=== PATIENT | female | born 1980 | race Asian ===

== ENCOUNTER 2017-01-23 12:32 | Outpatient (CLI) | payer OTHER ==
--- NOTE | 2017-01-23 19:48 | ULT ---
OB ULTRASOUND: Date: 01-23-17 History: Positive . Evaluate for growth. Comparison: 10-11-16 FINDINGS: There is a single intrauterine gestation which is in cephalic presentation. Cardiac doppler demonstr ates heart tones with a heart rate of 147 bpm. The placenta is located posteriorly and t o the left. There is no evidence of placenta previa. There is a normal amount of amniotic fluid with an amniotic fluid index of 15.9 cm. measurements: BPD 8.25 cm 33 weeks 1 day HC 30.48 cm 33 weeks 6 days AC 29.67 cm 33 weeks 5 days FL 6.4 cm 33 weeks Estimated gestational age by ultrasound is 33 weeks 2 days with an TORI on 03-11-17. Gestational age by last menstrual period is 34 weeks 3 days. Estimated weight by ultrasound is 2201 grams (4 lbs. 14 oz). There has been interval grown whe n compared to the prior exam. The study was not performed for evaluation of the anatomical structures. Doppler evaluation of the umbilical artery: Umbilical artery at level of placenta: peak systolic velocity is 56.4 cm, end diastolic velocity 33. 6 cm, and systolic/diastolic ratio of 1.68. Mid portion umbilical artery: Peak systolic velocity 52.7 cm/sec, end diastolic velocity 26.3 cm/sec , systolic to diastolic ratio 2. Level of the cord insertion: Peak systolic velocity 84.6 cm/sec, end diastolic velocity 43.6 cm/sec, systolic to diastolic ratio of 1.94. The normal range of 34 week gestation from 50th to 95th percentile for systolic to diastolic ratio i s 2.52 to 3.58, resistive index range is 0.59 to 0.73. IMPRESSION: 1. Single intrauterine gestation in cephalic presentation with heart tones documented. Estimat ed gestational age by ultrasound is 33 weeks 2 days with an TORI on 03-11-17. 2. Estimated weight by ultrasound is 2201 grams (4 lbs. 14 oz). 3. There has been interval growth compared to study on 10-11-16. 4. Umbilical artery doppler evaluation as described above. POS: [facility]
== END 2017-01-23 12:33 | disposition home or self-care (01) ==
LOC: ULT 12:32
PROVIDERS: ATTEND Family Medicine
DX: O24.414 Gestational diabetes mellitus in pregnancy, insulin controlled (principal); O09.523 Supervision of elderly multigravida, third trimester; Z3A.33 33 weeks gestation of pregnancy
CPT/HCPCS: 76805